=== PATIENT | female | born 1975 | race Caucasian/White ===

== ENCOUNTER 2022-09-29 09:18 | Emergency (ER) | payer OTHER ==
[~2022-09-29] VITALS: Ht 160 cm; Wt 117.9 kg
[2022-09-29] MEDS ORDERED: TOPROL XL25 M1 PO (09:29)
[2022-09-29] MEDS ORDERED: LOSARTAN POTASS50 MG PO (09:29)
== END 2022-09-29 13:18 | disposition home or self-care (01) ==
LOC: ER 09:18
DX: R10.13 Epigastric pain (principal)